=== PATIENT | male | born 1990 | race African-American/Black ===

== ENCOUNTER 2016-11-30 18:30 | Emergency (ER) | payer MEDICAID ==
[~2016-11-30] VITALS: Ht 170.2 cm; Wt 80.0 kg
[2016-11-30 18:31] VITALS: BP 146/88
== END 2016-11-30 19:30 | disposition left against medical advice (07) ==
LOC: ER 18:40
DX: Z53.21 Procedure and treatment not carried out due to patient leaving prior to being seen by health care provider (principal)